=== PATIENT | female | born 1960 | race African-American/Black ===

== ENCOUNTER 2021-06-13 18:42 | Emergency (ER) | payer BC ==
[~2021-06-13] VITALS: Ht 160 cm; Wt 86.3 kg
--- NOTE | 2021-06-13 19:13 | PHYS DOC ---
Past History Additional Past Medical Histor: BREAST CANCER;MS Past Surgical History: Hysterectomy, Other Additional Past Surgical Histo: LUMPECTOMY RIGHT BREAST; PORT PLACED AND REMOVED General Adult EDM: Chief Complaint: NEURO SYMPTOMS/DEFICITS HPI: HPI: Patient is a 60-year-old female who presents with left arm numbness and tingling that started at 2 PM today. Patient states "on Saturday I did hit my arm on something at work and I have a big bruise on the front of my arm". Patient reports that achiness and tingling has been constant. At 4 PM she started feeling lightheaded, so she went to urgent care to be seen, who sent her to the ER. Patient denies any numbness or tingling anywhere else. Denies shortness of breath, chest pain, sensory changes or weakness. Patient has a history of MS, diabetes, breast cancer. Review of Systems: Review of Systems: Constitutional: Denies fever or chills Eyes: Denies change in visual acuity HENT: Denies nasal congestion or sore throat Respiratory: Denies cough or shortness of breath Cardiovascular: Denies chest pain or edema GI: Denies abdominal pain, nausea, vomiting, bloody stools or diarrhea : Denies dysuria Musculoskeletal: Denies back pain or joint pain Integument: Bruising to left arm Neurologic: Reports aching and tingling in left arm, dizziness Endocrine: Denies polyuria or polydipsia Lymphatic: Denies swollen glands Psychiatric: Denies depression or anxiety Allergies: Allergies: Allergies Coded Allergies Type Severity Reaction Last Updated Verified No Known Drug Allergies 06/13/21 No Physical Exam: PE: Constitutional: Well developed, well nourished, no acute distress, non-toxic appearance. [] HENT: Normocephalic, atraumatic, bilateral external ears normal, oropharynx moist, no oral exudates, nose normal. [] Eyes: PERRLA, EOMI, conjunctiva normal, no discharge. [] Neck: Normal range of motion, no tenderness, supple, no stridor. [] Cardiovascular:Heart rate regular rhythm, no murmur [] Lungs & Thorax: Bilateral breath sounds clear to auscultation [] Abdomen: Bowel sounds normal, soft, no tenderness, no masses, no pulsatile masses. [] Skin: Bruising to anterior left upper arm Back: No tenderness, no CVA tenderness. [] Extremities: Bruising to left arm, achy and tingling in left arm, no cyanosis, no clubbing, ROM intact, no edema. [] Neurologic: Alert and oriented X 3, normal motor function, normal sensory function, no focal deficits noted. [] Psychologic: Affect normal, judgement normal, mood normal. [] Current Patient Data: Vital Signs: Vital Signs Date Time Temp Pulse Resp B/P (MAP) Pulse Ox O2 Delivery O2 Flow Rate FiO2 06/13/21 18:45 98.6 77 20 163/86 100 Room Air EKG: EKG: Sinus rhythm. Heart rate 72 bpm [] Radiology/Procedures: Radiology/Procedures: Exam: CT head INDICATION: Tingling, left arm and side TECHNIQUE: Sequential axial images through the head were obtained without the administration of IV contrast. Exposure: One or more of the following in the visualized dose reduction techniques were utilized for this examination: 1. Automated exposure control 2. Adjustment of the MA and/or KV according to patient size 3. Use of iterative of reconstructive technique Comparisons: None FINDINGS: No focal parenchymal lesion or hemorrhage is identified. There is no midline shift or sulcal effacement. No acute vascular territory infarction is identified. Sue-white distinction is preserved. The ventricular system is within normal limits without compression hydrocephalus. The basal cisterns are well maintained. The visualized portions of the paranasal sinuses and mastoid air cells are well- pneumatized. No acute fractures. IMPRESSION: No acute intracranial abnormality. Electronically signed by: Ekaterina Richardson MD (06/13/2021 7:41 PM) [facility] Heart Score: C/O Chest Pain: No Risk Factors: Risk Factors: DM, Current or recent (<one month) smoker, HTN, HLP, family history of CAD, obesity. Risk Scores: Score 0 - 3: 2.5% MACE over next 6 weeks - Discharge Home Score 4 - 6: 20.3% MACE over next 6 weeks - Admit for Clinical Observation Score 7 - 10: 72.7% MACE over next 6 weeks - Early Invasive Strategies Course & Med Decision Making: Course & Med Decision Making Pertinent Labs and Imaging studies reviewed. (See chart for details) [] 60-year-old female presents with left arm achiness and tingling that started at 2 PM today patient denied any other sensory changes or weakness. Patient states that she started having some dizziness about 4 PM and decided to go to urgent care to be seen. Urgent care center to the emergency room. Patient is alert and oriented. Neuro exam is negative. No weakness noted. CT of head was negative for any acute abnormalities. All labs were unremarkable. Patient was likely has a pinched nerve which was causing the tingling in her arm. Instructed patient to make an appointment tomorrow with her PCP for a follow-up. Patient was given strict return precautions with worsening symptoms. Patient was hemodynamically stable upon discharge and able to ambulate on her own. Patient is appreciative and okay with discharge plan. Dragon Disclaimer: [place] Disclaimer: This electronic medical record was generated, in whole or in part, using a voice recognition dictation system. Departure Departure: Impression: Primary Impression: Tingling of left upper extremity Additional Impression: Left upper arm injury Qualified Codes: S49.92XA - Unspecified injury of left shoulder and upper arm, initial encounter Disposition: HOME / SELF CARE / HOMELESS Condition: STABLE Referrals: LANDRY POLANCO (PCP) Patient Instructions: Pinched Nerve Additional Instructions: You are seen in the emergency room for left upper arm tingling. You also had a recent injury to the left upper arm. All of your labs were unremarkable. CT of your head was negative. Please follow-up with your PCP if symptoms continue. Return to emergency room if you have worsening symptoms or concerns peer EMERGENCY DEPARTMENT GENERAL DISCHARGE INSTRUCTIONS Thank you for coming to [facility] (ED) today and trusting us with you care. We trust that you had a positivie experience in our Emergency Department. If you wish to speak to the department management, you may call the director at [phone]. YOUR FOLLOW UP INSTRUCTIONS ARE FOLLOWS: 1. Do you have a private Doctor? If you do not have a private doctor, please ask for a resource list of physicians or clinics that may be able to assist you with follow up care. 2. The Emergency Physician has interpreted your x-rays. The X-Ray specialist will also review them. If there is a change in the findings, you will be notified in 48 hours when at all possible. 3. A lab test or culture has been done, your results will be reviewed and you will be notified if you need a change in treatment. ADDITIONAL INSTRUCTIONS AND INFORMATION: 1. Your care today has been supervised by a physician who is specially trained in emergency care. Many problems require more than one evaluation for a complete diagnosis and treatment. We recommend that you schedule your follow up appointment as recommended to ensure complete treatment of you illness or injury. If you are unable to obtain follow up care and continue to have a problem, or if your condition worsens, we recommend that you return to the ED. 2. We are not able to safely determine your condition over the phone nor are we able to give sound medical advice over the phone. For these safety reasons, if you call for medical advice we will ask you to come to the ED for further evaluation. 3. If you have any questions regarding these discharge instructions please call the ED at [phone]. SAFETY INFORMATION: In the interest of safety, wellness, and injury prevention; we encourage you to wear your sealbelt, if you smoke; quite smoking, and we encourage family to use a protective helmet for bicycling and other sporting events that present an increased risk for head injury. IF YOUR SYMPTOMS WORSEN OR NEW SYMPTOMS DEVELOP, OR YOU HAVE CONCERNS ABOUT YOUR CONDITION; OR IF YOUR CONDITION WORSENS WHILE YOU ARE WAITING FOR YOUR FOLLOW UP A PPOINTMENT; EITHER CONTACT YOUR PRIMARY CARE DOCTOR, THE PHYSICIAN WHOSE NAME AND NUMBER YOU WERE GIVEN, OR RETURN TO THE ED IMMEDIATELY. HAIM CANO APRN Jun 13, 2021 19:13
[2021-06-13 19:27] LABS: BASO # 0.1 x10^3/uL (0.0-0.2); BASO % 1 % (0-3); EOS # 0.1 x10^3/uL (0.0-0.7); EOS % 2 % (0-3); HEMATOCRIT 35.5 % (36.0-47.0); HEMOGLOBIN 11.3 g/dL (12.0-15.5); LYMPH # 2.5 x10^3/uL (1.0-4.8); LYMPH % 30 % (24-48); MEAN CORPUSCULAR HEMOGLOBIN 27 pg (25-35); MEAN CORPUSCULAR HGB CONC 32 g/dL (31-37); MEAN CORPUSCULAR VOLUME 85 fL (79-100); MONO # 0.7 x10^3/uL (0.0-1.1); MONO % 8 % (0-9); NEUT # 4.9 x10^3uL (1.8-7.7); NEUT % 59 % (31-73); PLATELET COUNT 210 x10^3/uL (140-400); RED BLOOD COUNT 4.16 x10^6/uL (3.50-5.40); RED CELL DISTRIBUTION WIDTH 14.8 % (11.5-14.5); WHITE BLOOD COUNT 8.3 x10^3/uL (4.0-11.0)
[2021-06-13 19:36] LABS: CALCIUM 8.9 mg/dL (8.5-10.1); CREATININE 1.4 mg/dL (0.6-1.0); GFR 46.4; POTASSIUM 3.5 mmol/L (3.5-5.1)
[2021-06-13 19:42] LABS: ALBUMIN 3.6 g/dL (3.4-5.0); TOTAL BILIRUBIN 0.1 mg/dL (0.2-1.0); TOTAL PROTEIN 7.1 g/dL (6.4-8.2)
--- NOTE | 2021-06-13 19:44 | RAD ---
Exam: CT head INDICATION: Tingling, left arm and side TECHNIQUE: Sequential axial images through the head were obtained without the administration of IV co ntrast. Exposure: One or more of the following in the visualized dose reduction techniques were utilized for this examination: 1. Automated exposure control 2. Adjustment of the MA and/or KV according to patient size 3. Use of iterative of reconstructive technique Comparisons: None FINDINGS: No focal parenchymal lesion or hemorrhage is identified. There is no midline shift or sulcal effaceme nt. No acute vascular territory infarction is identified. Sue-white distinction is preserved. The ventricular system is within normal limits without compression hydrocephalus. The basal cisterns are well maintained. The visualized portions of the paranasal sinuses and mastoid air cells are well-pneumatized. No acute fractures. IMPRESSION: No acute intracranial abnormality. Electronically signed by: Ekaterina Richardson MD (06/13/2021 7:41 PM) [facility]
--- NOTE | 2021-06-13 19:49 | EKG ---
[facility] ED [facility] [address] [place] [id number] Test Date: 2021-06-13 Test Time: 19:37:00 Pat Name: CHARISMA PERALTA Department: Room: Gender: F Car Mechanic: : [id number] Requested By: HAIM CANO Order Number: [id number] Reading MD: Measurements Intervals [place] Rate: 72 P: 47 NH: 166 QRS: 5 QRSD: 84 T: 20 QT: 426 QTc: 468 Interpretive Statements SINUS RHYTHM VENTRICULAR PREMATURE COMPLEX(ES) ABNORMAL ECG RI6.02 No previous ECG available for comparison
[2021-06-13 21:33] VITALS: BP 143/86
== END 2021-06-13 21:34 | disposition home or self-care (01) ==
LOC: ER 18:42
DX: S40.022A Contusion of left upper arm, initial encounter (principal); R20.2 Paresthesia of skin; R42 Dizziness and giddiness; W22.8XXA Striking against or struck by other objects, initial encounter; Y93.89 Activity, other specified; Y92.89 Other specified places as the place of occurrence of the external cause; Y99.0 Civilian activity done for income or pay
CPT/HCPCS: 36415; 70450; 80053; 85025; 93005; 99285